=== PATIENT | female | born 1980 | race Caucasian/White ===

== ENCOUNTER 2020-09-27 22:34 | Emergency (ER) | payer OTHER ==
[~2020-09-27] VITALS: Ht 170.2 cm; Wt 83.2 kg
[2020-09-27 22:53] VITALS: BP 134/44
--- NOTE | 2020-09-27 22:55 | PHYS DOC ---
Adult General HPI HPI Patient is a 40-year-old female with past medical history significant for asthma who presents with a chief complaint of sinus congestion and sore throat for couple days. States that she went to urgent care today and was started on Augmentin for sinusitis. States she still has a sore throat. States she was tested for Covid today and was negative. Denies any fevers, headache, trouble swallowing, chest pain, shortness of breath, abdominal pain, nausea, vomiting, dysuria, hematuria or blood in the stool. States he took 1 dose of her Augmentin today. States he is eating and drinking normally for her. States she is making urine and stool normally for her. Review of Systems Review of Systems Constitutional: Denies fever or chills [] Eyes: Denies change in visual acuity, redness, or eye pain [] HENT: Denies nasal congestion or sore throat [] Respiratory: Denies cough or shortness of breath [] Cardiovascular: No additional information not addressed in HPI [] GI: Denies abdominal pain, nausea, vomiting, bloody stools or diarrhea [] : Denies dysuria or hematuria [] Musculoskeletal: Denies back pain or joint pain [] Integument: Denies rash or skin lesions [] Neurologic: Denies headache, focal weakness or sensory changes [] Endocrine: Denies polyuria or polydipsia [] All other systems were reviewed and found to be within normal limits, except as documented in this note. Allergies Allergies Allergies Coded Allergies Type Severity Reaction Last Updated Verified Sulfa (Sulfonamide Antibiotics) Allergy Intermediate 09/27/20 Yes yellow dye Allergy Intermediate 09/27/20 Yes Physical Exam Physical Exam Constitutional: Well developed, well nourished, no acute distress, non-toxic appearance. [] HENT: Normocephalic, atraumatic, bilateral external ears normal, oropharynx moist, no oral exudates, nose normal. [] Eyes: conjunctiva normal, no discharge. [] Neck: Normal range of motion, no tenderness, supple, no stridor. [] Cardiovascular:Heart rate regular rhythm, no murmur [] Lungs & Thorax: No respiratory distress, normal work of breathing, very mild end expiratory wheeze Abdomen: soft, no tenderness, no masses, no pulsatile masses. [] Skin: Warm, dry, no erythema, no rash. [] Extremities: No tenderness, no cyanosis, no clubbing, ROM intact, no edema. [] Neurologic: Alert and oriented X 3, normal motor function, normal sensory function, no focal deficits noted. [] Psychologic: Affect normal, judgement normal, mood normal. [] EKG EKG [] Radiology/Procedures Radiology/Procedures [] Heart Score C/O Chest Pain: No Risk Factors: Risk Factors: DM, Current or recent (<one month) smoker, HTN, HLP, family history of CAD, obesity. Risk Scores: Risk Factors: DM, Current or recent (<one month) smoker, HTN, HLP, family history of CAD, obesity. Course & Med Decision Making Course & Med Decision Making Patient is a 40-year-old female who presents with sinusitis and cough on Augmentin, complaining of a sore throat, Covid negative Vital signs not concerning. Physical exam noted above. Patient given Tylenol, ibuprofen and cough syrup. Given albuterol inhaler. Given steroids. Chest x-ray not concerning. Patient symptoms better while in the emergency department. Gave recommendations for symptom control at home. Advised to call primary care physician in the morning. Gave return precautions to the ED. Patient grateful, verbalized understanding agree with plan of discharge. [] Dragon Disclaimer Dragon Disclaimer This electronic medical record was generated, in whole or in part, using a voice recognition dictation system. Departure Departure: Impression: Primary Impression: Sinus congestion Additional Impression: Cough Disposition: 01 HOME / SELF CARE / HOMELESS Condition: GOOD Referrals: PCP,NO (PCP) REJI TABARES MD Patient Instructions: Sinusitis, Viral Syndrome Additional Instructions: Thank you for coming into the emergency department tonight and allowing us to take care of you. Please read all the attached information above carefully to go back over things we discussed. You can continue Tylenol, ibuprofen, Benadryl and Afrin at home as needed. Please take your antibiotics as prescribed. Ple ase follow-up in the morning with your primary care physician to set up a follow-up visit. Please come back to the ED with new or concerning symptoms as discussed. Problem Qualifiers SIOBHAN HENDRICKSON MD Sep 27, 2020 22:55
--- NOTE | 2020-09-27 23:13 | RAD ---
XR CHEST 1V History: Reason: cough, congestion / Spl. Instructions: / History: Comparison: None. Findings: No consolidation or pleural effusion. Normal heart size. No pneumothorax. Impression: 1. No acute cardiopulmonary process. Electronically signed by: Carson Van DO (09/27/2020 11:10 PM) [facility]
[2020-09-27] MEDS ORDERED: ALBUTEROL SULFATE 8GM INHALER. INH ONE (23:30)
[2020-09-27] MEDS ORDERED: guaiFENesin/CODEINE 100mg/10mg 5 ML LIQUID PO ONE (23:30)
[2020-09-27] MEDS ORDERED: ACETAMINOPHEN 500 MG TABLET PO ONE (23:30)
[2020-09-27] MEDS ORDERED: IBUPROFEN 600 MG TABLET. PO ONE (23:30)
[2020-09-27] MEDS ORDERED: OXYMETAZOLINE 0.05% NASAL SPRAY 30ML BOTTLE. NS ONE (23:30)
== END 2020-09-27 23:34 | disposition home or self-care (01) ==
LOC: ER 22:34
DX: R09.81 Nasal congestion (principal); R05 Cough; J02.9 Acute pharyngitis, unspecified; J45.909 Unspecified asthma, uncomplicated; Z88.2 Allergy status to sulfonamides; Z91.041 Radiographic dye allergy status
CPT/HCPCS: 71045; 94640; 99284; 94664